=== PATIENT | female | born 1970 | race Caucasian/White ===

== ENCOUNTER 2017-04-15 11:48 | Inpatient (IN) | payer MEDICAID ==
[~2017-04-15] VITALS: Ht 170.2 cm; Wt 82.1 kg
[2017-04-15 12:36] LABS: ANION GAP 7 mmol/L (8-16); CARBON DIOXIDE 26 mmol/L (22-29); CHLORIDE 106 mmol/L (98-107); CREATININE 0.93 mg/dL (0.60-1.30); GLOMERULAR FILTR. RATE CALC > 60 mL/min (>60); POTASSIUM 3.7 mmol/L (3.5-5.1); SODIUM SERUM 139 mmol/L (136-145); UREA NITROGEN, BLOOD 11 mg/dL (7-18)
[2017-04-15 12:38] LABS: BASOPHILS % (AUTO) 0.7 % (0.0-2.0); EOSINOPHILS % (AUTO) 2.3 % (1.0-6.0); HEMATOCRIT 39.4 % (36-46); HEMOGLOBIN 13.3 g/dL (12.0-16.0); LYMPHOCYTES # (AUTO) 1.9 K/uL (1.0-4.8); LYMPHOCYTES % (AUTO) 28.1 % (22.0-44.0); MEAN CORPUSCULAR HEMOGLOBIN 32.9 pg (26.0-34.0); MEAN CORPUSCULAR HGB CONC 33.8 G/dL (31.0-37.0); MEAN CORPUSCULAR VOLUME 97 fL (80-100); MONOCYTES # (AUTO) 0.5 K/uL (0.1-1.0); NEUTROPHILS # (AUTO) 4.1 K/uL (1.8-7.7); NEUTROPHILS % (AUTO) 61.9 % (40.0-70.0); PLATELET COUNT (AUTO) 125 K/uL (150-450); RED BLOOD CELL COUNT(AUTO) 4.04 MIL/uL (4.00-5.20); RED CELL DISTRIBUTION WIDTH 14.3 % (11.5-14.5); WHITE BLOOD COUNT (AUTO) 6.7 K/uL (4.5-11.0)
[2017-04-15 12:42] LABS: ALANINE AMINOTRANSFERASE 65 U/L (12-78); ALBUMIN 3.3 g/dL (3.4-5.0); ASPARTATE AMINOTRANSFERASE 58 U/L (15-37); BILIRUBIN,TOTAL 0.7 mg/dL (0.1-1.0); TOTAL PROTEIN, SERUM 7.7 g/dL (6.4-8.2)
[2017-04-15] MEDS ORDERED: LITH300C3 PO (13:06)
[2017-04-15] MEDS ORDERED: PALI3 PO (13:06)
[2017-04-15] MEDS ORDERED: ZOLPIDEM TARTRATE 10 MG TABLET PO PRN (13:15)
[2017-04-15] MEDS: LORazepam 2 MG TABLET PO PRN ×2 (15:02→20:34)
[2017-04-15 16:40] VITALS: BP 128/70
[2017-04-15] MEDS ORDERED: PNEUMOCOCCAL VACCINE POLYVALENT 0.5 ML VIAL [PPSV23] IM ONE (18:30)
[2017-04-15] MEDS: HALOPERIDOL 5 MG TABLET PO PRN (20:35)
[2017-04-16 08:25] VITALS: BP 133/85
[2017-04-16] MEDS: NICOTINE 14 MG/24 HOUR PATCH TD SCH (09:00)
[2017-04-16] MEDS ORDERED: IBUPROFEN 400 MG TABLET PO PRN (15:15)
[2017-04-16] MEDS ORDERED: ACETAMINOPHEN 325 MG TABLET PO PRN (15:15)
[2017-04-16 16:46] VITALS: BP 134/87
[2017-04-16] MEDS: LITHIUM CARBONATE 300 MG CAPSULE PO SCH (16:56)
[2017-04-17 01:56] VITALS: BP 118/77
[2017-04-17] MEDS: NICOTINE 14 MG/24 HOUR PATCH TD SCH (09:00)
[2017-04-17 09:07] VITALS: BP 145/84
[2017-04-17] MEDS: LITHIUM CARBONATE 300 MG CAPSULE PO SCH ×2 (09:14→16:20)
[2017-04-17] MEDS: PALIPERIDONE 3 MG ER TABLET PO SCH (09:15)
[2017-04-17 16:26] VITALS: BP 126/69
[2017-04-18 01:27] VITALS: BP 120/73
[2017-04-18 08:51] VITALS: BP 122/83
[2017-04-18] MEDS: PALIPERIDONE 3 MG ER TABLET PO SCH (09:47)
[2017-04-18] MEDS: LITHIUM CARBONATE 300 MG CAPSULE PO SCH ×2 (09:47→17:04)
[2017-04-18] MEDS: NICOTINE 14 MG/24 HOUR PATCH TD SCH (09:47)
[2017-04-18] MEDS: HALOPERIDOL 5 MG TABLET PO PRN ×2 (11:23→17:04)
[2017-04-18] MEDS: LORazepam 2 MG TABLET PO PRN ×2 (11:23→17:03)
[2017-04-18 16:38] VITALS: BP 125/67
[2017-04-19 02:12] VITALS: BP 110/62
[2017-04-19 08:29] VITALS: BP 122/55
[2017-04-19 08:58] LABS: BASOPHILS # (AUTO) 0.02 K/uL (0.00-0.20); BASOPHILS % (AUTO) 0.5 % (0.0-2.0); EOSINOPHILS # (AUTO) 0.13 K/uL (0.00-0.70); EOSINOPHILS % (AUTO) 2.66 % (1.0-6.0); HEMATOCRIT 45.2 % (36-46); HEMOGLOBIN 14.9 g/dL (12.0-16.0); LYMPHOCYTES # (AUTO) 1.3 K/uL (1.0-4.8); LYMPHOCYTES % (AUTO) 27.1 % (22.0-44.0); MEAN CORPUSCULAR HEMOGLOBIN 32.6 pg (26.0-34.0); MEAN CORPUSCULAR HGB CONC 32.9 G/dL (31.0-37.0); MEAN CORPUSCULAR VOLUME 99 fL (80-100); MONOCYTES # (AUTO) 0.3 K/uL (0.1-1.0); NEUTROPHILS % (AUTO) 63.8 % (40.0-70.0); RED BLOOD CELL COUNT(AUTO) 4.56 MIL/uL (4.00-5.20); RED CELL DISTRIBUTION WIDTH 14.5 % (11.5-14.5); WHITE BLOOD COUNT (AUTO) 4.7 K/uL (4.5-11.0)
[2017-04-19 09:34] LABS: HEMOGLOBIN A1C 4.8 % (4.5-6.2)
[2017-04-19 09:41] LABS: ALANINE AMINOTRANSFERASE 81 U/L (12-78); ALBUMIN 3.2 g/dL (3.4-5.0); ANION GAP 11 mmol/L (8-16); ASPARTATE AMINOTRANSFERASE 89 U/L (15-37); BILIRUBIN,TOTAL 0.5 mg/dL (0.1-1.0); CALCIUM, TOTAL 8.8 mg/dL (8.8-10.5); CARBON DIOXIDE 23 mmol/L (22-29); CHLORIDE 104 mmol/L (98-107); CREATININE 0.64 mg/dL (0.60-1.30); GLOMERULAR FILTR. RATE CALC > 60 mL/min (>60); POTASSIUM 4.3 mmol/L (3.5-5.1); SODIUM SERUM 138 mmol/L (136-145); THYROID STIMULATING HORMONE 1.01 uIU/mL (0.36-3.74); TOTAL PROTEIN, SERUM 7.5 g/dL (6.4-8.2); UREA NITROGEN, BLOOD 15 mg/dL (7-18)
[2017-04-19] MEDS: NICOTINE 14 MG/24 HOUR PATCH TD SCH (09:43)
[2017-04-19] MEDS: PALIPERIDONE 3 MG ER TABLET PO SCH (09:43)
[2017-04-19] MEDS: LITHIUM CARBONATE 300 MG CAPSULE PO SCH ×2 (09:44→16:16)
[2017-04-19 10:07] LABS: APPEARANCE,URINE TURBID (CLEAR); GLUCOSE, URINE (UA) NEGATIVE (NEGATIVE); KETONES,URINE NEGATIVE (NEGATIVE); LEUKOCYTE ESTERASE ,URINE SMALL (NEGATIVE); OCCULT BLOOD,URINE NEGATIVE (NEGATIVE); PH,URINE 7.5 (5.0-8.0); PROTEIN,URINE NEGATIVE (NEGATIVE)
[2017-04-19 10:09] LABS: ADD UA MICROSCOPIC YES
[2017-04-19 10:10] LABS: PLATELET COUNT (AUTO) 74 K/uL (150-450)
[2017-04-19 10:11] LABS: AMORPHOUS SEDIMENT,UR Many /LPF (None Seen); CALCIUM OXALATE CRYSTALS,UR Few /LPF (None Seen); RBC,URINE None Seen /HPF (0-2); SQUAMOUS EPITHELIAL CELL,UR Few /LPF (None Seen); WBC,URINE 0-2 /HPF (0-5)
[2017-04-19 10:19] LABS: RBC MORPHOLOGY COMMENT NORMAL RBC MORPH
[2017-04-19 16:00] VITALS: BP 114/65
[2017-04-19] MEDS: LORazepam 2 MG TABLET PO PRN (16:16)
[2017-04-20 01:31] VITALS: BP 115/71
[2017-04-20] MEDS: LITHIUM CARBONATE 300 MG CAPSULE PO SCH ×2 (08:59→16:35)
[2017-04-20] MEDS: NICOTINE 14 MG/24 HOUR PATCH TD SCH (09:00)
[2017-04-20] MEDS: PALIPERIDONE 3 MG ER TABLET PO SCH (09:02)
[2017-04-20 09:18] VITALS: BP 118/74
[2017-04-20] MEDS: LORazepam 2 MG TABLET PO PRN (16:35)
[2017-04-20] MEDS: HALOPERIDOL 5 MG TABLET PO PRN (16:35)
[2017-04-20 16:41] VITALS: BP 106/64
[2017-04-21 01:20] LABS: GC DNA N.A. AMPLIFY Negative (Negative)
[2017-04-21 01:56] VITALS: BP 104/66
[2017-04-21] MEDS: NICOTINE 14 MG/24 HOUR PATCH TD SCH (08:47)
[2017-04-21] MEDS: LITHIUM CARBONATE 300 MG CAPSULE PO SCH ×2 (08:47→16:11)
[2017-04-21] MEDS: PALIPERIDONE 3 MG ER TABLET PO SCH (08:47)
[2017-04-21 09:14] VITALS: BP 108/56
[2017-04-21] MEDS: LORazepam 2 MG TABLET PO PRN ×2 (10:38→16:11)
[2017-04-21] MEDS: HALOPERIDOL 5 MG TABLET PO PRN (16:11)
[2017-04-21 16:30] VITALS: BP 122/61
[2017-04-22 04:52] VITALS: BP 111/69
[2017-04-22 08:38] VITALS: BP 136/72
[2017-04-22] MEDS: NICOTINE 14 MG/24 HOUR PATCH TD SCH (08:50)
[2017-04-22] MEDS: LITHIUM CARBONATE 300 MG CAPSULE PO SCH ×2 (08:50→16:08)
[2017-04-22] MEDS: PALIPERIDONE 3 MG ER TABLET PO SCH (08:50)
[2017-04-22] MEDS: LORazepam 2 MG TABLET PO PRN (16:08)
[2017-04-22 16:30] VITALS: BP 122/70
[2017-04-22] MEDS: HALOPERIDOL 5 MG TABLET PO PRN (18:18)
[2017-04-23 00:16] VITALS: BP 111/63
[2017-04-23 08:42] VITALS: BP 122/70
[2017-04-23] MEDS: PALIPERIDONE 3 MG ER TABLET PO SCH (09:04)
[2017-04-23] MEDS: NICOTINE 14 MG/24 HOUR PATCH TD SCH (09:05)
[2017-04-23] MEDS: LITHIUM CARBONATE 300 MG CAPSULE PO SCH ×2 (09:05→18:37)
[2017-04-23] MEDS: LORazepam 2 MG TABLET PO PRN (11:36)
[2017-04-23 13:02] VITALS: BP 118/72
[2017-04-23 13:17] LABS: GLUCOSE,POINT OF CARE 108 MG/DL (70-110)
[2017-04-23] MEDS ORDERED: HALO5 PO (14:30)
[2017-04-23] MEDS ORDERED: NICO-650 TD (14:30)
[2017-04-23] MEDS ORDERED: LORA2TAB2 PO (14:30)
[2017-04-23] MEDS ORDERED: ZOLP10TA7 PO (14:30)
[2017-04-23 18:05] VITALS: BP 133/73
[2017-04-24 01:01] VITALS: BP 120/74
[2017-04-24] MEDS: LORazepam 2 MG TABLET PO PRN ×2 (08:36→16:03)
[2017-04-24] MEDS: NICOTINE 14 MG/24 HOUR PATCH TD SCH (08:37)
[2017-04-24] MEDS: LITHIUM CARBONATE 300 MG CAPSULE PO SCH ×2 (08:37→16:03)
[2017-04-24] MEDS: PALIPERIDONE 3 MG ER TABLET PO SCH (09:33)
[2017-04-24] MEDS: MetroNIDAZOLE 500 MG TABLET PO SCH ×2 (09:33→16:03)
[2017-04-24 10:20] VITALS: BP 97/68
[2017-04-24 16:33] VITALS: BP 119/69
[2017-04-25 00:15] VITALS: BP 104/60
[2017-04-25] MEDS: MetroNIDAZOLE 500 MG TABLET PO SCH (08:59)
[2017-04-25] MEDS: LITHIUM CARBONATE 300 MG CAPSULE PO SCH (08:59)
[2017-04-25] MEDS: PALIPERIDONE 3 MG ER TABLET PO SCH (08:59)
[2017-04-25] MEDS: NICOTINE 14 MG/24 HOUR PATCH TD SCH (08:59)
[2017-04-25 10:56] VITALS: BP 112/68
[2017-04-25] MEDS ORDERED: METR500 PO (11:40)
[2017-04-27 00:07] LABS: GC DNA N.A. AMPLIFY Negative (Negative)
== END 2017-04-25 13:15 | disposition home or self-care (01) | DRG 750 ==
LOC: EMS 11:52 → EEVIPCON 11:52 → B2S 15:05
PROVIDERS: ADMIT Psychiatry & Neurology Child & Adolescent Psychiatry; ATTEND Psychiatry & Neurology Child & Adolescent Psychiatry
DX: F25.1 Schizoaffective disorder, depressive type (principal); R45.851 Suicidal ideations; R74.0 Nonspecific elevation of levels of transaminase and lactic acid dehydrogenase [LDH]; Z59.0 Homelessness; F10.10 Alcohol abuse, uncomplicated; Z28.21 Immunization not carried out because of patient refusal; F17.200 Nicotine dependence, unspecified, uncomplicated; Z91.5 Personal history of self-harm; K76.9 Liver disease, unspecified; F19.10 Other psychoactive substance abuse, uncomplicated; Z71.6 Tobacco abuse counseling; Z71.41 Alcohol abuse counseling and surveillance of alcoholic; Z71.51 Drug abuse counseling and surveillance of drug abuser; F12.90 Cannabis use, unspecified, uncomplicated
CPT/HCPCS: 82962; 83036; 84439; 84443; 86592; 87389; 87491; 87591; 99285; G0480

== ENCOUNTER 2017-04-23 14:16 | Emergency (ER) | payer MEDICAID ==
[~2017-04-23] VITALS: Ht 170.2 cm; Wt 77.3 kg
[~2017-04-23 14:16] MED LIST: LITH300C3 PO; PALI3 PO
[2017-04-23 14:29] VITALS: BP 115/66
[2017-04-23] MEDS ORDERED: ZOLP10TA7 PO (14:30)
[2017-04-23] MEDS ORDERED: LORA2TAB2 PO (14:30)
[2017-04-23] MEDS ORDERED: HALO5 PO (14:30)
[2017-04-23] MEDS ORDERED: NICO-650 TD (14:30)
[2017-04-23 15:09] LABS: BASOPHILS % (AUTO) 0.7 % (0.0-2.0); EOSINOPHILS % (AUTO) 2.7 % (1.0-6.0); HEMATOCRIT 39.1 % (36-46); HEMOGLOBIN 13.2 g/dL (12.0-16.0); LYMPHOCYTES # (AUTO) 1.6 K/uL (1.0-4.8); LYMPHOCYTES % (AUTO) 30.5 % (22.0-44.0); MEAN CORPUSCULAR HEMOGLOBIN 33.3 pg (26.0-34.0); MEAN CORPUSCULAR HGB CONC 33.8 G/dL (31.0-37.0); MEAN CORPUSCULAR VOLUME 99 fL (80-100); MONOCYTES # (AUTO) 0.5 K/uL (0.1-1.0); MONOCYTES % (AUTO) 9.5 % (2.0-9.0); NEUTROPHILS % (AUTO) 56.6 % (40.0-70.0); PLATELET COUNT (AUTO) 70 K/uL (150-450); RED BLOOD CELL COUNT(AUTO) 3.97 MIL/uL (4.00-5.20); RED CELL DISTRIBUTION WIDTH 14.4 % (11.5-14.5); WHITE BLOOD COUNT (AUTO) 5.3 K/uL (4.5-11.0)
[2017-04-23 15:20] LABS: ANION GAP 5 mmol/L (8-16); CALCIUM, TOTAL 8.9 mg/dL (8.8-10.5); CARBON DIOXIDE 30 mmol/L (22-29); CHLORIDE 104 mmol/L (98-107); CREATININE 0.84 mg/dL (0.60-1.30); GLOMERULAR FILTR. RATE CALC > 60 mL/min (>60); POTASSIUM 4.3 mmol/L (3.5-5.1); SODIUM SERUM 139 mmol/L (136-145); UREA NITROGEN, BLOOD 17 mg/dL (7-18)
[2017-04-23 15:27] LABS: ALANINE AMINOTRANSFERASE 138 U/L (12-78); ASPARTATE AMINOTRANSFERASE 119 U/L (15-37); BILIRUBIN,TOTAL 0.3 mg/dL (0.1-1.0); TOTAL PROTEIN, SERUM 7.8 g/dL (6.4-8.2)
[2017-04-23] MEDS ORDERED: KETOROLAC TROMETHAMINE 30 MG/ML VIAL IVP ONE (15:30)
[2017-04-23 16:33] LABS: APPEARANCE,URINE CLEAR (CLEAR); GLUCOSE, URINE (UA) NEGATIVE (NEGATIVE); KETONES,URINE NEGATIVE (NEGATIVE); LEUKOCYTE ESTERASE ,URINE NEGATIVE (NEGATIVE); OCCULT BLOOD,URINE NEGATIVE (NEGATIVE); PH,URINE 6.5 (5.0-8.0); PROTEIN,URINE NEGATIVE (NEGATIVE)
[2017-04-23 16:36] LABS: ADD UA MICROSCOPIC NO
== END 2017-04-23 17:36 | disposition home or self-care (01) ==
LOC: EMS 14:18
DX: K75.9 Inflammatory liver disease, unspecified (principal); K86.1 Other chronic pancreatitis; F15.90 Other stimulant use, unspecified, uncomplicated; F17.200 Nicotine dependence, unspecified, uncomplicated
CPT/HCPCS: 36415; 80053; 81003; 83690; 84703; 85025; 96374; 99284; J1885